=== PATIENT | female | born 1995 | race American Indian/Alaskan Native ===

== ENCOUNTER 2018-01-09 13:15 | Emergency (ER) | payer MEDICARE ==
[2018-01-09] MEDS ORDERED: NACL 0.9% 1000 ML IV ONE (14:06)
[2018-01-09] MEDS ORDERED: ZOSYN/NS 3.375GM/50ML 3.375 GM/50 ML BAG IV ONE (14:10)
--- NOTE | 2018-01-09 14:17 | Emergency Department Report ---
HPI - General Chief Complaint: Fever Time Seen by Provider: 01/09/18 14:05 - HPI HPI: 22-year-old -[place] female presents to the emergency department from home with complaint of a 24-hour history of some body aches, mixed dry and productive cough, shortness of breath, generalized chest discomfort, sore throat. Patient presents with a fever and says that she did feel slightly feverish today with some chills and sweats. She tried some Robitussin for her cough last night without much relief. She has a past medical history of hypertension for which she takes carvedilol, hydralazine and clonidine. She has end-stage renal disease on hemodialysis. She had a kidney transplant done back in [place] but it failed and therefore she has been back on dialysis since 2012. Both her bryologist, Dr. Beth, and her primary care physician, Dr. Lori Mobley, our through [facility]. No recent travel or sick contacts at home. ED Past Medical Hx - Past Medical History Previous Medical History?: Yes Additional medical history: ESRD on dialysis since 2012 after failed transplant. - Surgical History Past Surgical History?: Yes Additional Surgical History: Kidney transplant 2005 - Social History Smoking Status: Never Smoker Substance Use Type: None - Medications Home Medications: Home Medications Medication Instructions Recorded Confirmed Last Taken Type Carvedilol [Coreg] 25 mg PO BID 01/09/18 01/09/18 01/09/18 History 25 MG Hydralazine HCl 50 mg PO BID 01/09/18 01/09/18 01/09/18 History 50 MG cloNIDine [Catapres] 0.1 mg PO Q12H 01/09/18 01/09/18 01/09/18 History 0.1 MG predniSONE [Prednisone] 5 mg PO DAILY 01/09/18 01/09/18 Unknown History ED Review of Systems ROS: Stated complaint: PAIN ALL OVER Other details as noted in HPI Comment: All other systems reviewed and negative Constitutional: chills, fever Eyes: denies: eye pain, eye discharge, vision change ENT: throat pain. denies: ear pain Respiratory: cough, shortness of breath Cardiovascular: chest pain. denies: edema Gastrointestinal: denies: abdominal pain, nausea, diarrhea Genitourinary: denies: urgency, dysuria, discharge Musculoskeletal: denies: back pain, joint swelling, arthralgia Skin: denies: rash, lesions Neurological: denies: headache, weakness, paresthesias Physical Exam - Physical Exam Vital Signs: Vital Signs 01/09/18 13:34 Temperature 101.1 F H Pulse Rate 127 H Respiratory 22 Rate Blood Pressure 191/135 O2 Sat by Pulse 99 Oximetry Physical Exam: GENERAL: The patient is well-developed well-nourished. HENT: Normocephalic. Atraumatic. Patient has moist mucous membranes. EYES: Extraocular motions are intact. Pupils equal reactive to light bilaterally. NECK: Supple. Trachea is midline. CHEST/LUNGS: Clear to auscultation. A productive cough is heard during examination. No tachypnea or accessory muscle use. There is no respiratory distress noted. HEART/CARDIOVASCULAR: Regular. There is mild tachycardia. There is no murmur. ABDOMEN: Abdomen is soft, nontender. Patient has normal bowel sounds. There is no abdominal distention. SKIN: Skin is warm and dry. NEURO: The patient is awake, alert, and oriented. The patient is cooperative. The patient has no focal neurologic deficits. The patient has normal speech. Cranial nerves II through XII grossly intact. MUSCULOSKELETAL: There is no tenderness or deformity. There is no limitation range of motion. There is no evidence of acute injury. ED Course Vital Signs 01/09/18 13:34 Temperature 101.1 F H Pulse Rate 127 H Respiratory 22 Rate Blood Pressure 191/135 O2 Sat by Pulse 99 Oximetry ED Medical Decision Making - Lab Data Result diagrams: 01/09/18 17:52 01/09/18 13:45 - EKG Data -: EKG Interpreted by Me EKG shows normal: sinus rhythm, axis, intervals, QRS complexes, ST-T waves Rate: normal - EKG Data When compared to previous EKG there are: previous EKG unavailable Interpretation: normal EKG - Radiology Data Radiology results: report reviewed, image reviewed interpreted by me: Chest x-ray does not show any acute process. There are no pleural effusions, obvious pneumonia and there is no pneumothorax. PROCEDURE: Nuclear medicine ventilation and perfusion lung scan. TECHNIQUE: Ventilation imaging was done in the posterior projection using 25.7 millicuries of xenon 133 gas. Perfusion imaging was done in multiple projections using 3.47 millicuries of technetium 99 M maa. HISTORY: CP, elevated dimer COMPARISON: Comparison chest radiograph 01/09/2018. FINDINGS: There is symmetrical, homogeneous ventilation bilaterally. There is no trapping of xenon gas during the washout phase of the study. The perfusion images are also homogeneous without definite perfusion defect. The lung scan is normal and carries an extremely low probability of pulmonary embolism. IMPRESSION: Normal lung scan. Transcribed By: NITIN Dictated By: JED MILLER MD Electronically Authenticated By: JED MILLER MD Signed Date/Time: 01/09/18 2369 - Medical Decision Making Patient presents with a fever, complaint of chest tightness and shortness of breath, body aches. Patient was worked up as a possible sepsis. Physical examination patient does not have any focus of a fever. However a rapid strep test was done that came back negative. Patient was negative for both influenza A and B. A chest x-ray did not show any signs of pneumonia, pleural effusions, focal consolidation, pneumothorax or any other acute process. The labs showed some mild hypercalcemia, and elevated an equivocal d-dimer and signs of her chronic kidney disease. No potassium abnormalities. Because of the elevated and equivocal d-dimer, a VQ scan was done that came back as normal. The patient did have very elevated blood pressure upon arrival. She was given some labetalol and Catapres and eventually the blood pressure came down to a more reasonable level. The patient had improvement of her symptoms and is asking for discharge home. She has good follow-up with both primary care and nephrology. She is scheduled for dialysis tomorrow. With all of her symptoms and the fever, I think the patient most likely has an upper respiratory and/or viral syndrome. We discussed using Tylenol as needed for fever or discomfort. The patient will return to the emergency Department with any worsening of her symptoms or any acute distress. - Differential Diagnosis pneumonia, URI, CHF, PE Critical Care Time: No Critical care attestation.: If time is entered above; I have spent that time in minutes in the direct care of this critically ill patient, excluding procedure time. ED Disposition Clinical Impression: Viral syndrome, ESRD on dialysis Fever Qualifiers: Fever type: unspecified Qualified Code(s): R50.9 - Fever, unspecified Upper respiratory infection Qualifiers: URI type: unspecified URI Qualified Code(s): J06.9 - Acute upper respiratory infection, unspecified Hypertension Qualifiers: Hypertension type: essential hypertension Qualified Code(s): I10 - Essential ( primary) hypertension Disposition: TO HOME OR SELFCARE Is pt being admited?: No Condition: Stable Instructions: Chronic Kidney Disease (ED), Upper Respiratory Infection (ED), Hypertension (ED) Additional Instructions: Please follow-up with your primary care physician in the next few days. Please continue with your normal dialysis regiment. Try and stay away from foods that are high in salt and caffeinated products. Keep a blood pressure log. Return to the emergency Department with any worsening of your symptoms or any acute distress. You can use Tylenol every 4 hours, using weight-based dosing, as needed for fever or discomfort. Referrals: PRIMARY CARE, [Primary Care Provider] - 2-3 Days Time of Disposition: 19:40
[2018-01-09 14:30] LABS: Albumin 4.7 g/dL (3.9-5); Calcium 11.1 mg/dL (8.4-10.2)
[2018-01-09] MEDS ORDERED: MORPHINE IV ONE (14:54)
[2018-01-09] MEDS ORDERED: NORMODYNE IV ONE (14:54)
[2018-01-09] MEDS ORDERED: ZOFRAN IV ONE (14:54)
--- NOTE | 2018-01-09 15:24 | XRay Report ---
ROUTINE CHEST, TWO VIEWS: HISTORY: Cough with fever. The trachea, heart, mediastinal contour, lung fulelr and bony thorax are unremarkable. IMPRESSION: Unremarkable chest x-ray.
[2018-01-09] MEDS ORDERED: DILAUDID IV ONE (16:39)
[2018-01-09] MEDS ORDERED: CATAPRES PO ONE ×2 (16:39→18:17)
--- NOTE | 2018-01-09 16:55 | Nuclear Medicine Report ---
FINAL REPORT PROCEDURE: Nuclear medicine ventilation and perfusion lung scan. TECHNIQUE: Ventilation imaging was done in the posterior projection using 25.7 millicuries of xenon 133 gas. Perfusion imaging was done in multiple projections using 3.47 millicuries of technetium 99 M maa. HISTORY: CP, elevated dimer COMPARISON: Comparison chest radiograph 01/09/2018. FINDINGS: There is symmetrical, homogeneous ventilation bilaterally. There is no trapping of xenon gas during the washout phase of the study. The perfusion images are also homogeneous without definite perfusion defect. The lung scan is normal and carries an extremely low probability of pulmonary embolism. IMPRESSION: Normal lung scan.
[2018-01-09] MEDS ORDERED: TYLENOL ONE (17:38)
[2018-01-09] MEDS ORDERED: TYLENOL PO ONE (17:46)
[2018-01-09 18:01] LABS: Basophils % (Auto) 0.6 % (0.0-1.8); Eosinophils # (Auto) 0.2 K/mm3 (0.0-0.4); Eosinophils % (Auto) 2.3 % (0.0-4.3); Hematocrit 33.8 % (30.3-42.9); Hemoglobin 11.3 gm/dl (10.1-14.3); Lymphocytes % (Auto) 12.5 % (13.4-35.0); Mean Corpuscular HGB Conc 33 % (30-34); Mean Corpuscular Hemoglobin 32 pg (28-32); Mean Corpuscular Volume 95 fl (79-97); Monocytes # (Auto) 0.3 K/mm3 (0.0-0.8); Platelet Count 200 K/mm3 (140-440); Red Blood Count 3.57 M/mm3 (3.65-5.03); Red Cell Distribution Width 13.9 % (13.2-15.2)
[2018-01-09] MEDS ORDERED: APRESOLINE IV ONE (19:19)
[2018-01-09 19:28] VITALS: BP 166/104
== END 2018-01-09 20:17 | disposition home or self-care (01) ==
LOC: ED 13:15
DX: B34.9 Viral infection, unspecified (principal); J06.9 Acute upper respiratory infection, unspecified; I12.0 Hypertensive chronic kidney disease with stage 5 chronic kidney disease or end stage renal disease; N18.6 End stage renal disease; Z99.2 Dependence on renal dialysis; Z94.0 Kidney transplant status
CPT/HCPCS: 36415; 71046; 78582; 80053; 82140; 84703; 85025; 85379; 87116; 87400; 87430; 93005; 93010; 96365; 96375; 99284; A9540; A9558; J0360; J1170; J2270; J2405; J2543